=== PATIENT | female | born 1975 ===

== ENCOUNTER 2018-10-29 09:59 | Emergency (ER) | payer OTHER ==
--- NOTE | 2018-10-29 11:22 | ED ---
General Adult HPI - General Chief complaint: OB/Uterine Contractions Stated complaint: poss ectopic Time Seen by Provider: 10/29/18 10:17 Source: patient, RN notes reviewed Mode of arrival: ambulatory Limitations: language barrier - History of Present Illness Initial comments: 43-year-old female presents emergency Department from outpatient ultrasound for possible ectopic . Patient states that she is A0 states that she had her last mental cycle on 09/05/2018 she has attempted to contact and RECOVERY COACH but has had no appointment scheduled. Patient states that she has pain when she sits up primarily on the left lower and lower pubic region. Patient denies any current vaginal bleeding or vaginal discharge states she did have some scant bleeding a few days ago. She's no dysuria no hematuria no diarrhea no constipation. Patient had no prior abdominal surgeries. - Related Data Home Medications Medication Instructions Recorded Confirmed Pnv,Calcium 72/Iron/Folic Acid 1 tab PO DAILY 10/29/18 10/29/18 [ Plus Tablet] Allergies Allergy/AdvReac Type Severity Reaction Status Date / Time No Known Allergies Allergy Verified 10/29/18 10:12 Review of Systems ROS Statement: Those systems with pertinent positive or pertinent negative responses have been documented in the HPI. ROS Other: All systems not noted in ROS Statement are negative. Past Medical History Past Medical History: No Reported History History of Any Multi-Drug Resistant Organisms: None Reported Past Surgical History: No Surgical Hx Reported Past Psychological History: No Psychological Hx Reported Smoking Status: Former smoker Past Alcohol Use History: None Reported Past Drug Use History: None Reported General Exam Limitations: language barrier General appearance: alert, in no apparent distress Head exam: Present: atraumatic, normocephalic, normal inspection Neck exam: Present: normal inspection, full ROM. Absent: tenderness, meningismus, lymphadenopathy Respiratory exam: Present: normal lung sounds bilaterally. Absent: respiratory distress, wheezes, rales, rhonchi, stridor Cardiovascular Exam: Present: regular rate, normal rhythm, normal heart sounds. Absent: systolic murmur, diastolic murmur, rubs, gallop, clicks GI/Abdominal exam: Present: soft, normal bowel sounds. Absent: distended, tenderness, guarding, rebound, rigid Back exam: Absent: CVA tenderness (R), CVA tenderness (L) Skin exam: Present: warm, dry, intact, normal color. Absent: rash Course Vital Signs 10/29/18 10/29/18 10:07 13:42 Temperature 98.5 F Pulse Rate 70 Respiratory 18 17 Rate Blood Pressure 107/62 O2 Sat by Pulse 99 Oximetry Medical Decision Making - Medical Decision Making 43-year-old female presented for abdominal pain abnormal ultrasound. Patient was evaluated by Dr. Mera in the emergency department so that she is having a miscarriage and she may have an ongoing fibroid. Patient is to follow-up in office 8:30 AM on Thursday and return for any worsening symptoms. - Lab Data Result diagrams: 10/29/18 10:39 10/29/18 10:39 Lab Results 10/29/18 10/29/18 10/29/18 Range/Units 10:39 10:39 10:39 WBC 9.6 (3.8-10.6) k/uL RBC 4.14 (3.80-5.40) m/uL Hgb 13.0 (11.4-16.0) gm/dL Hct 38.4 (34.0-46.0) % MCV 92.8 (80.0-100.0) fL MCH 31.5 (25.0-35.0) pg MCHC 33.9 (31.0-37.0) g/dL RDW 14.6 (11.5-15.5) % Plt Count 250 (150-450) k/uL Neutrophils % 66 % Lymphocytes % 23 % Monocytes % 5 % Eosinophils % 3 % Basophils % 1 % Neutrophils # 6.3 (1.3-7.7) k/uL Lymphocytes # 2.2 (1.0-4.8) k/uL Monocytes # 0.5 (0-1.0) k/uL Eosinophils # 0.3 (0-0.7) k/uL Basophils # 0.0 (0-0.2) k/uL Sodium 137 (137-145) mmol/L Potassium 4.0 (3.5-5.1) mmol/L Chloride 104 (98-107) mmol/L Carbon Dioxide 20 L (22-30) mmol/L Anion Gap 13 mmol/L BUN 8 (7-17) mg/dL Creatinine 0.54 (0.52-1.04) mg/dL Est GFR (CKD-EPI)AfAm >90 (>60 ml/min/1.73 sqM) Est GFR (CKD-EPI)NonAf >90 (>60 ml/min/1.73 sqM) Glucose 101 H (74-99) mg/dL Calcium 9.5 (8.4-10.2) mg/dL HCG, Quant 18691.9 mIU/mL Blood Type O Positive Blood Type Recheck No Previous Record Bld Type Recheck Status [facility] ONLY Disposition Clinical Impression: Miscarriage Disposition: HOME SELF-CARE Condition: Stable Instructions (If sedation given, give patient instructions): Miscarriage (ED) Additional Instructions: Please return to the Emergency Department if symptoms worsen or any other concerns. Follow-up RECOVERY COACH's office at 8:30 AM on Thursday. Is patient prescribed a controlled substance at d/c from ED?: No Referrals: Tara Escobar DO [Primary Care Provider] - 1-2 days Paula Mera DO [Doctor of Osteopathic Medicine] - 1-2 days Time of Disposition: 14:03
[2018-10-29 11:36] LABS: Basophils % (A) 1 %; Eosinophils # (A) 0.3 k/uL (0-0.7); Eosinophils % (A) 3 %; HCT 38.4 % (34.0-46.0); Lymphocytes # (A) 2.2 k/uL (1.0-4.8); Lymphocytes % (A) 23 %; MCH 31.5 pg (25.0-35.0); MCHC 33.9 g/dL (31.0-37.0); MCV 92.8 fL (80.0-100.0); Mean Platelet Volume 8.4; Monocytes # (A) 0.5 k/uL (0-1.0); Monocytes % (A) 5 %; Neutrophils # (A) 6.3 k/uL (1.3-7.7); Neutrophils % (A) 66 %; Platelet Count 250 k/uL (150-450); RBC 4.14 m/uL (3.80-5.40); RDW 14.6 % (11.5-15.5); WBC 9.6 k/uL (3.8-10.6)
[2018-10-29 11:38] LABS: African American GFR (CKD) >90 (>60 ml/min/1.73 sqM); Anion Gap 13 mmol/L; Blood Urea Nitrogen 8 mg/dL (7-17); Calcium 9.5 mg/dL (8.4-10.2); Carbon Dioxide 20 mmol/L (22-30); Chloride 104 mmol/L (98-107); Glucose 101 mg/dL (74-99); Sodium 137 mmol/L (137-145)
[2018-10-29 12:48] LABS: HCG,Quantitative Serum 33351.9 mIU/mL
[2018-10-29 14:07] VITALS: BP 104/69; PULSE 63; RESP 18; TEMP 98.7
--- NOTE | 2018-10-29 18:03 | P.OBCN ---
History of Present Illness Consult date: 10/29/18 Requesting physician: David Murillo Reason for consult: early problem Chief complaint: Possible ectopic History of present illness: This is a 43-year-old female 1 para 0 with a last menstrual period of 09/05/2018, who was initially seen by her primary care physician Tara Escobar out of [place]. She did have beta hCG levels drawn on October 22 which showed a level of 16,753 and then on October 27 the level was 38,091. Beta hCG level in the emergency room today is 33,351. The patient did state that she had been feeling some occasional mild cramping and some left-sided pain but was not currently feeling any pain today. She did say she had some very light spotting starting on Thursday and again had some yesterday and today. She states the spotting was brownish in color. Her family physician sent her into the hospital for a pelvic ultrasound and then she was called by her family physician while she was driving home and told to return to the emergency room for evaluation for possible ectopic. Again the patient today is not complaining of any pain but only some mild spotting earlier today. The patient and her have been together for 4 years and has not used any protection during that time in attempts to get . As far as they no, she has not been at all before this time. They have not done any kind of infertility treatments. Pe lvic ultrasound today showed a irregular sac within the uterus measuring 6 weeks 0 days that is elongated and situated within the left lateral endometrium. Also within the uterine myometrium there is noted a predominantly hyperechoic a complex mixed lesion within the left myometrium measuring 3 cm. There is a questionable pole versus more likely debris noted within the sac with a crown rump length measuring 5 weeks 6 days. The radiologist's impression was concern for ectopic versus molar . The pseudo-gestational sac appears to be elongated and irregular with internal 3 mm echogenic focus. No free fluid is seen on the exam. 3 cm intrauterine mass may represent a molar , at ectopic implantation near the cornu region, or leiomyoma. Review of Systems Gastrointestinal: Denies abdominal pain Genitourinary: Reports pelvic pain (Occasionally only if she sits up quickly and more on the left side.), Reports Musculoskeletal: Denies myalgias Neurological: Denies syncope, Denies weakness Past Medical History Past Medical History: No Reported History History of Any Multi-Drug Resistant Organisms: None Reported Past Surgical History: No Surgical Hx Reported Past Psychological History: No Psychological Hx Reported Smoking Status: Former smoker Past Alcohol Use History: None Reported Past Drug Use History: None Reported Medications and Allergies Home Medications Medication Instructions Recorded Confirmed Type Pnv,Calcium 72/Iron/Folic Acid 1 tab PO DAILY 10/29/18 10/29/18 History [ Plus Tablet] Allergies Allergy/AdvReac Type Severity Reaction Status Date / Time No Known Allergies Allergy Verified 10/29/18 10:12 Exam Osteopathic Statement: *. No significant issues noted on an osteopathic stru ctural exam other than those noted in the History and Physical/Consult. Vital Signs Temp Pulse Resp BP Pulse Ox 10/29/18 14:05 98.7 F 63 18 104/69 97 10/29/18 13:42 17 10/29/18 10:07 98.5 F 70 18 107/62 99 Intake and Output 10/29/18 10/29/18 10/29/18 06:59 14:59 22:59 Other: Weight 78.471 kg Gen.: Well-developed well-nourished female in no acute distress Abdomen: Nontender to palpation throughout. No guarding or rebound. Results Result Diagrams: 10/29/18 10:39 10/29/18 10:39 Abnormal Lab Results - Last 24 Hours (Table) 10/29/18 Range/Units 10:39 Carbon Dioxide 20 L (22-30) mmol/L Glucose 101 H (74-99) mg/dL Assessment and Plan Assessment: Impression is most likely missed , less likely ectopic based on symptoms and review of ultrasound films. (1) Missed Status: Acute Code(s): O02.1 - MISSED SNOMED Code(s): 56596181 Plan: I had a long discussion with the patient and her regarding the ultrasound findings along with her beta hCG levels. I have advised them that this is a nonviable based on the dropping beta hCG levels and the findings of no heart tones on ultrasound. In reviewing the ultrasound films, I do believe that most likely this is a missed versus less likely a cornual ectopic . Since the patient is asymptomatic at this time and not actively bleeding or having any other symptoms, I have discussed letting her go home and returning to my office on Thursday for another exam and repeat beta hCG levels. I did also discuss the option of admitting overnight for observation or proceeding with a dilation and curettage with possible laparoscopy if no tissue is obtained. Based on her current minimal symptoms, the patient feels comfortable going home but will return to the emergency room if she has any severe pain, heavy bleeding, or lightheaded or dizziness. She is advised to call the office or return to the emergency room with any concerns. I have scheduled her an appointment in my office on Thursday at 8:30 AM.
== END 2018-10-29 14:16 | disposition home or self-care (01) ==
LOC: EC 09:59
DX: O02.1 Missed abortion (principal); Z79.899 Other long term (current) drug therapy; Z87.891 Personal history of nicotine dependence
CPT/HCPCS: 36415; 80048; 84702; 85025; 86900; 86901; 99284

== ENCOUNTER → 2018-10-29 | Outpatient (CLI) | payer OTHER ==
--- NOTE | 2018-10-29 09:55 | US ---
EXAMINATION TYPE: Transabdominal DATE OF EXAM: 10/29/2018 9:17 AM COMPARISON: NONE CLINICAL HISTORY: R10.32 left Lower Quad Pain. LLQ pain EXAM PERFORMED: Transvaginal (TV) and Transabdominal (TA) EXAM MEASUREMENTS: GESTATIONAL AGE / DATING Physician Established: Not yet established Dates by LMP: ( 8 weeks/2 days) EDC: 06/08/2019 Dates by First Scan: No previous this is first scan Dates by Current Scan for: (6 weeks/0 days) EDC: 06/24/2019 MATERNAL ANATOMY Uterus: 8.1 x 4.3 x 5.1 cm Right Ovary: 2.4 x 2.0 x 1.7 cm Left Ovary: Obscured by bowel gas Post CDS / Adnexa: wnl Presence of free fluid: no Presence of corpus luteal cyst: Yes right Presence of subchorionic bleed: no GESTATION / SURVEY Possible pole versus more likely debris. If this is a pole CRL: 0.3 cm (5 weeks/6 days) MSD: 1.31 cm (6 weeks/0 days). This is irregular in contour and elongated situated within the left la teral endometrium. Yolk Sac (normal less than 6mm): Not seen. Heart Rate: Not seen at this time Beta HcG (if available): 16,753 on 10/22 now 38,091 on 10/27 Not available at this time Within the uterine myometrium there is a predominately hyperechoic but complex and mixed lesion withi n the left myometrium measuring 3.0 x 3.0 x 2.5 cm. IMPRESSION: There is concern for ectopic vs molar . The pseudogestational sac appears elongate d and irregular with internal 3 mm echogenic focus. No free fluid is yet seen on this exam. 3.0 cm i ntrauterine mass may represent a molar , ectopic implantation near the cornu, or leiomyoma s een. Findings were communicated with JANE Nj by Dr. Jenkins on 10/29/2018 at 9:41 AM.
== END | disposition home or self-care (01) ==
LOC: RADUSWWP 08:51
PROVIDERS: ATTEND Family Medicine
DX: R10.32 Left lower quadrant pain (principal)
CPT/HCPCS: 76801; 76817

== ENCOUNTER → 2018-11-01 | Outpatient (CLI) | payer OTHER ==
--- NOTE | 2018-11-01 12:38 | US ---
EXAMINATION TYPE: Transabdominal DATE OF EXAM: 11/01/2018 9:58 AM COMPARISON: Recent ultrasound 3 days ago CLINICAL HISTORY: O46.91 Bleeding 1st trimester. spotting since Thursday's OB US EXAM PERFORMED: OBTA/OBTV EXAM MEASUREMENTS: GESTATIONAL AGE / DATING Physician Established: (6 weeks/3 days) EDC: 06/24/2019 Dates by LMP: (8 weeks/5 days) EDC: 06/08/2019 Dates by First Scan: ( 6 weeks/3 days) EDC: 06/24/2019 Dates by Current Scan for: (6 weeks/3 days) EDC: 06/24/2019 MATERNAL ANATOMY Uterus: 8.9 x 4.6 x 4.8cm Right Ovary: 2.2 x 1.9 x 1.5cm Left Ovary: not seen due to bowel gas today Post CDS / Adnexa: wnl Presence of free fluid: no Presence of corpus luteal cyst: right ovary 1.0cm Presence of subchorionic bleed: peristalsing area noted to the left of gest sac which may represent b leed GESTATION / SURVEY CRL: not seen today MSD: 1.6cm (6 weeks/3 days) Yolk Sac (normal less than 6mm): not seen Date of LMP: 09/01/2018 Beta HcG (if available): was 33,300 on 10/29, getting lab work done now *connected with Dr Mera 10:20 Persistent anteverted uterus. Oval anechoic area measures 1.9 x 0.8 x 2.1 cm current study slightly i ncreased in size from prior. Continued irregularity. Adjacent small subchorionic hemorrhage or implan tation bleed. No yolk sac or pole identified. No free fluid in pelvic cul-de-sac. Right ovary seen on current study. Left ovary not clearly identified. Within the right ovary 1.0 cm o isabella anechoic lesion could reflect corpus luteal cyst. IMPRESSION: Findings favor impending spontaneous , too early to visualize intrauterine pregna ncy is in differential ectopic is not excluded. Serial beta hCG and ultrasound follow-up is advised.
== END | disposition home or self-care (01) ==
LOC: RADUSWWP 09:20
PROVIDERS: ATTEND Obstetrics & Gynecology
DX: O46.91 Antepartum hemorrhage, unspecified, first trimester (principal); Z3A.01 Less than 8 weeks gestation of pregnancy
CPT/HCPCS: 76801; 76817; 84702

== ENCOUNTER → 2018-11-04 | Outpatient (CLI) | payer OTHER | END | disposition home or self-care (01) | LOC: LABWHC1 10:20 | PROVIDERS: ATTEND Obstetrics & Gynecology | DX: O20.9 Hemorrhage in early pregnancy, unspecified (principal); Z3A.00 Weeks of gestation of pregnancy not specified | CPT/HCPCS: 36415; 84702 ==

== ENCOUNTER → 2018-11-06 | Outpatient (CLI) | payer OTHER | END | disposition home or self-care (01) | LOC: LABWHC1 09:41 | PROVIDERS: ATTEND Obstetrics & Gynecology | DX: O03.9 Complete or unspecified spontaneous abortion without complication (principal) | CPT/HCPCS: 36415; 84702 ==

== ENCOUNTER → 2018-11-09 | Outpatient (CLI) | payer OTHER ==
--- NOTE | 2018-11-10 08:45 | US ---
EXAMINATION TYPE: US OB <=14 wks transvag DATE OF EXAM: 11/09/2018 4:37 PM COMPARISON: Prior ultrasound studies October 29, 2018 and November 01, 2018 CLINICAL HISTORY: Z36 confirm dates. Follow up to previous.Beta down from 46,000 to 40,000 in 48 hours having it redrawn today. EXAM PERFORMED: Transvaginal (TV) and Transabdominal (TA) EXAM MEASUREMENTS: GESTATIONAL AGE / DATING Physician Established: Not yet established Dates by LMP: (10 weeks/0 days) EDC: 06/08/2019 Dates by First Scan: Sac only measured. Dates by Current Scan for: (6 weeks/5 days) EDC: 06/30/2019 MATERNAL ANATOMY Uterus: 9.2 x 5.0 x 5.2 cm Right Ovary: 1.9 x 1.7 x 2.6 cm Left Ovary: 2.4 x 2.2 x 2.2 cm Post CDS / Adnexa: wnl Presence of free fluid: no Presence of corpus luteal cyst: Yes right 1.4x 1.5 x 1.3cm. Presence of subchorionic bleed: Continued irregularity adjacent to gestational sac with movement within visualized. GESTATION / SURVEY CRL: 1.23cm (7 weeks/3 days) MSD: 1.64cm (6 weeks/0 days) Yolk Sac (normal less than 6mm): 5mm upper limits. Heart Rate: Two technologists visualized a possible flicker, however unable to measure with M mode. IUP: Changed from previous possible CRL seen. Does not have a usual appearance. Beta HcG (if available): 40,000 11/06/2018 Being redrawn today. Redemonstration of heterogeneous anteverted uterus. Endometrium is poorly defined. There is elongated anechoic area could reflect gestational sac but has abnormal appearance as is the elongated measuring 2.1 x 0.7 x 2.2 cm. There is central 5 mm rim hyperechoic structure likely reflecting dural sac. pole is felt present measuring 1.1 cm in length. Attempts on the detecting heart rate are unsuccessful in definitive repetitive beading, possible occasional heartbeat is seen. No free fluid in pelvic cul-de-sac. Both ovaries are seen on today's study with 1.4 cm peripheral hypervascular anechoic lesion felt to reflect corpus luteal cyst in right ovary. No suspicious extraovarian adnexal masses. IMPRESSION: Abnormal study, still suspect impending . Correlate with today's beta-hCG value advised. Differential still includes too early to visualize intrauterine and ectopic is not entirely excluded. Need to further investigated by serial beta-hCG and ultrasound follow-up should be based on clinical correlation. MTDD
== END | disposition home or self-care (01) ==
LOC: RADUSMAIN 15:59
PROVIDERS: ATTEND Obstetrics & Gynecology
DX: O03.9 Complete or unspecified spontaneous abortion without complication (principal); Z3A.01 Less than 8 weeks gestation of pregnancy
CPT/HCPCS: 36415; 76801; 76817; 84702

== ENCOUNTER → 2018-11-17 | Outpatient (CLI) | payer OTHER ==
--- NOTE | 2018-11-17 13:14 | US ---
EXAMINATION TYPE: Transabdominal DATE OF EXAM: 11/17/2018 11:31 AM COMPARISON: US 2018 CLINICAL HISTORY: Z36 CONFIRM DATES. Follow up to previous abnormal findings, patient states no pain or bleeding. EXAM PERFORMED: Transvaginal (TV) and Transabdominal (TA) EXAM MEASUREMENTS: GESTATIONAL AGE / DATING Physician Established: Not established yet Dates by LMP: (11 weeks/1 days) EDC: 06/08/2019 Dates by First Scan: Only sac measured Dates by Current Scan for: Only sac measured MATERNAL ANATOMY Uterus: 8.5 x 5.5 x 5.6cm Right Ovary: 2.1 x 1.3 x 2.1cm Left Ovary: 2.4 x 1.2 x 1.5cm Post CDS / Adnexa: wnl Presence of free fluid: no Presence of corpus luteal cyst: right ovary: 1.2 x 1.0 x 1.0cm Presence of subchorionic bleed: continued irregularity adjacent to gestational sac with movement seen within GESTATION / SURVEY MSD: 1.9cm (6 weeks/2 days) Irregular gestational sac seen again on today's exam, no area seen at this time to reflect possible f etal pole that was seen on previous exam, continued irregularity adjacent to gestational sac with mov ement seen within as noted by the technologist. Increased vascularity noted on color Doppler. IMPRESSION: Suspect findings are due to molar . Correlate clinically.
== END ==
LOC: RADUSWWP 11:00
PROVIDERS: ATTEND Obstetrics & Gynecology
DX: Z36.89 Encounter for other specified antenatal screening (principal); Z3A.00 Weeks of gestation of pregnancy not specified
CPT/HCPCS: 76801; 76817

== ENCOUNTER → 2018-11-29 | Outpatient (CLI) | payer OTHER | END | disposition home or self-care (01) | LOC: LABWHC1 14:52 | PROVIDERS: ATTEND Obstetrics & Gynecology | DX: O02.1 Missed abortion (principal); Z3A.00 Weeks of gestation of pregnancy not specified | CPT/HCPCS: 36415; 84702 ==

== ENCOUNTER → 2018-12-06 | Outpatient (CLI) | payer OTHER ==
--- NOTE | 2018-12-06 14:08 | US ---
EXAMINATION TYPE: Transabdominal DATE OF EXAM: 12/06/2018 1:45 PM COMPARISON: Ultrasounds dating back to 10/29/2018 CLINICAL HISTORY: R68.89 Other general symptoms and signs. falling beta per order EXAM PERFORMED: Transvaginal (TV) and Transabdominal (TA) EXAM MEASUREMENTS: GESTATIONAL AGE / DATING Physician Established: Not yet established Dates by LMP: 09/01/2018 Dates by First Scan: no to date by prior ultrasounds Dates by Current Scan for: No IUP seen at this time MATERNAL ANATOMY Uterus: 7.2 x 4.6 x 5.7 cm Right Ovary: 2.9 x 1.6 x 2.6 Left Ovary: mass affect measures 5.8 x 3.4 x 4.9 cm, ovary not definitely seen. Post CDS / Adnexa: no free fluid Presence of free fluid: none GESTATION / SURVEY Date of LMP: 09/01/2018 Beta HcG (if available): being drawn today, order states falling. Endometrium is prominent size measuring approximately 1.5 cm with marked increased vascularity, poss ible retained products versus endometrial is. Mass affect with peripheral flow left adnexa, definite ovary not seen. This would be suspicious for e ctopic with positive beta levels. IMPRESSION: 1. Findings are concerning for left adnexal ectopic . Ill-defined mass in the left adnexa wi th vascular flow is seen without definitive ovarian tissue. 2. Marked vascularity in the endometrium and prominent size suggest retained products of conception o r endometritis. The previously seen complex cystic and solid mass has been passed in the interim. A Red level critical message alert has been initiated for Paula Mera DO via the [email or web address] Critical Results System on 12/06/2018 2:04 PM. This message alert has been sent to Paula Mera DO via the preferences provided by the clinician for the receipt of Radiology Critical Findings. Message ID [id number].
== END ==
LOC: RADUSWWP 13:09
PROVIDERS: ATTEND Obstetrics & Gynecology
DX: N94.89 Other specified conditions associated with female genital organs and menstrual cycle (principal); O03.9 Complete or unspecified spontaneous abortion without complication
CPT/HCPCS: 76801; 76817; 84702

== ENCOUNTER → 2018-12-29 | Outpatient (CLI) | payer OTHER ==
--- NOTE | 2018-12-29 14:36 | US ---
EXAMINATION TYPE: Transabdominal DATE OF EXAM: 12/29/2018 1:00 PM COMPARISON: Multiple previous US, the most recent 12/06/2018 CLINICAL HISTORY: O03.4 Incomplete spontaneous without comp. F/U, Pt states HCG levels very low, recent labs not in our system, pt also states she passed piece of tissue a couple of weeks ago EXAM PERFORMED: Transvaginal (TV) and Transabdominal (TA) EXAM MEASUREMENTS: GESTATIONAL AGE / DATING Physician Established: Not established Dates by LMP: Unknown Dates by First Scan: No evidence of IUP Dates by Current Scan for: No evidence of IUP MATERNAL ANATOMY Uterus: 8.5 x 4.4 x 5.5 cm Right Ovary: 3.0 x 2.1 x 2.4 cm Left Ovary: 2.4 x 1.2 x 2.6 cm Post CDS / Adnexa: wnl Presence of free fluid: No GESTATION / SURVEY IUP: No IUP seen at this time Beta HcG (if available): Not available at this time No evidence of IUP, endo thickness= 1.2 cm/ Dominant follicle right ovary= 1.6 x 1.2 cm/ Large, het erogenous, vascular mass appears to extend from uterine fundus and extends into left adnexa= 5.3 x 3. 8 x 6.6 cm, possible pedunculated fibroid vs. other etiology IMPRESSION: 1. 6.6 cm masslike area of the left adnexa could relate to a pedunculated uterine leiomyoma or residu al ectopic as concern for ectopic on the prior. This appears separate from the left ovary. 2. Endometrial thickness has improved from the prior. No sonographic evidence of intrauterine pregnan cy.
== END | disposition home or self-care (01) ==
LOC: RADUSWWP 12:35
PROVIDERS: ATTEND Obstetrics & Gynecology
DX: O03.4 Incomplete spontaneous abortion without complication (principal)
CPT/HCPCS: 76801; 76817

== ENCOUNTER → 2020-05-16 | Outpatient (CLI) | payer OTHER ==
--- NOTE | 2020-05-17 07:13 | US ---
EXAMINATION TYPE: US pelvis complete transvag DATE OF EXAM: 05/16/2020 COMPARISON: NONE CLINICAL HISTORY: R10.2 Pelvic Pain. Patient states follow up since she has not seen since miscarriag e in 2019. TECHNIQUE: Transvaginal (TV) and Transabdominal (TA) . Transabdominal sonographic images of the pel vis were acquired. Transvaginal sonographic images were medically necessary to better assess the fol lowing anatomy: Uterus and ovaries. Date of LMP: 04/24/2020 EXAM MEASUREMENTS: Uterus: 6.4 x 3.3 x 4.1 cm Endometrial Stripe: 0.7 cm Right Ovary: 2.9 x 1.9 x 1.6 cm Left Ovary: 2.7 x 2.5 x 1.3 cm 1. Uterus: Anteverted wnl 2. Endometrium: wnl 3. Right Ovary: 1.6 x 1.3 x 1.2 cm complex area. 4. Left Ovary: wnl 5. Bilateral Adnexa: wnl 6. Posterior cul-de-sac: no free fluid IMPRESSION: Small complex cystic area right ovary may reflect involuting cyst. This can be confirmed with follow- up study in 6 weeks.
== END | disposition home or self-care (01) ==
LOC: RADUSWWP 16:14
PROVIDERS: ATTEND Obstetrics & Gynecology
DX: N83.201 Unspecified ovarian cyst, right side (principal)
CPT/HCPCS: 76830; 76856

== ENCOUNTER → 2020-08-13 | Outpatient (CLI) | payer OTHER ==
--- NOTE | 2020-08-13 15:00 | US ---
EXAMINATION TYPE: US pelvic complete DATE OF EXAM: 08/13/2020 COMPARISON: US 05/16/2020 CLINICAL HISTORY: N83.0 Ovarian Cyst. F/U previous right ovarian lesion TECHNIQUE: Transabdominal (TA). Transabdominal sonographic images of the pelvis were acquired. Date of LMP: 07/24/2020 EXAM MEASUREMENTS: Uterus: 8.3 x 4.0 x 4.8 cm Endometrial Stripe: 0.9 cm Right Ovary: 3.0 x 2.2 x 2.6 cm Left Ovary: 2.9 x 1.8 x 2.9 cm 1. Uterus: Anteverted wnl 2. Endometrium: wnl 3. Right Ovary: wnl 4. Left Ovary: wnl 5. Bilateral Adnexa: wnl 6. Posterior cul-de-sac: wnl IMPRESSION: No definite sonographic abnormality in the uterus or ovaries.
== END | disposition home or self-care (01) ==
LOC: RADUSWWP 13:35
PROVIDERS: ATTEND Obstetrics & Gynecology
DX: N83.209 Unspecified ovarian cyst, unspecified side (principal)
CPT/HCPCS: 76856